=== PATIENT | female | born 1980 | race Caucasian/White ===

== ENCOUNTER 2018-02-22 12:44 | Emergency (ER) | payer OTHER ==
[2018-02-22 14:18] LABS: ADD MAN DIFF? NO
[2018-02-22 14:20] LABS: WHITE BLOOD COUNT 6.9 10^3/ul (4.8-10.8)
[2018-02-22 14:20] LABS: BASOPHILS % 0.3 % (0.0-2.0); EOSINOPHILS # 0.1 10^3/ul (0.0-0.5); HEMATOCRIT 36.1 % (37.0-47.0); HEMOGLOBIN 12.3 g/dl (12.0-16.0); LYMPHOCYTES # 1.7 10^3/ul (0.8-2.9); LYMPHOCYTES % 25.1 % (15.0-51.0); MEAN CORPUSCULAR HEMOGLOBIN 32.5 pg (29.0-33.0); MEAN CORPUSCULAR HGB CONC 34.1 g/dl (32.0-37.0); MEAN CORPUSCULAR VOLUME 95.5 fl (82.0-101.0); MEAN PLATELET VOLUME 10.2 fl (7.4-10.4); MONOCYTE # 0.8 10^3/ul (0.3-0.9); MONOCYTES % 11.3 % (0.0-11.0); NEUTROPHIL # 4.3 10^3/ul (1.6-7.5); PLATELET COUNT 266 10^3/UL (140-415); RED BLOOD COUNT 3.78 10^6/ul (4.20-5.40); RED CELL DISTRIBUTION WIDTH 12.6 % (11.5-14.5)
[2018-02-22 14:45] LABS: ADD UMIC NO; UR ASCORBIC ACID 20 mg/dL (NEGATIVE); UR BACTERIA FEW /HPF (NONE SEEN); UR BILIRUBIN (Dip) NEGATIVE (NEGATIVE); UR BLOOD (Dip) NEGATIVE (NEGATIVE); UR CLARITY SLIGHTLY CLOUDY (CLEAR); UR COLOR YELLOW (YELLOW); UR GLUCOSE (Dip) NEGATIVE (NEGATIVE); UR KETONES (Dip) NEGATIVE (NEGATIVE); UR LEUKOCYTE ESTERASE (Dip) NEGATIVE Leu/ul (NEGATIVE); UR NITRITE (Dip) NEGATIVE (NEGATIVE); UR RBC 2 /HPF (0-5); UR SPECIFIC GRAVITY (Dip) 1.012 (1.003-1.030); UR TOTAL PROTEIN (Dip) NEGATIVE (NEGATIVE); UR UROBILINOGEN (Dip) NEGATIVE (NEGATIVE); UR WBC 2 /HPF (0-5)
== END 2018-02-22 15:49 | disposition home or self-care (01) ==
LOC: FTE 12:44
DX: O26.891 Other specified pregnancy related conditions, first trimester (principal); R10.2 Pelvic and perineal pain; O10.011 Pre-existing essential hypertension complicating pregnancy, first trimester; Z3A.08 8 weeks gestation of pregnancy
CPT/HCPCS: 36415; 76801; 76817; 81001; 81003; 84702; 85025; 86850; 86900; 86901; 99284-25

== ENCOUNTER 2018-06-20 12:59 | Outpatient (CLI) | payer OTHER ==
[2018-06-20 14:43] LABS: ADD MAN DIFF? NO
[2018-06-20 14:47] LABS: BASOPHILS % 0.2 % (0.0-2.0); EOSINOPHILS # 0.1 10^3/ul (0.0-0.5); HEMATOCRIT 32.2 % (37.0-47.0); HEMOGLOBIN 11.1 g/dl (12.0-16.0); LYMPHOCYTES # 1.4 10^3/ul (0.8-2.9); LYMPHOCYTES % 15.5 % (15.0-51.0); MEAN CORPUSCULAR HEMOGLOBIN 34.3 pg (29.0-33.0); MEAN CORPUSCULAR HGB CONC 34.5 g/dl (32.0-37.0); MEAN CORPUSCULAR VOLUME 99.4 fl (82.0-101.0); MEAN PLATELET VOLUME 10.2 fl (7.4-10.4); MONOCYTE # 0.8 10^3/ul (0.3-0.9); MONOCYTES % 8.7 % (0.0-11.0); NEUTROPHIL # 6.6 10^3/ul (1.6-7.5); PLATELET COUNT 262 10^3/UL (140-415); RED BLOOD COUNT 3.24 10^6/ul (4.20-5.40); RED CELL DISTRIBUTION WIDTH 13.5 % (11.5-14.5)
[2018-06-20 15:07] LABS: ALANINE AMINOTRANSFERASE 54 IU/L (13-69); ALBUMIN 3.2 g/dl (3.3-4.9); ALBUMIN/GLOBULIN RATIO 0.96; ALKALINE PHOSPHATASE 115 IU/L (42-121); ANION GAP 10 (8-16); ASPARTATE AMINO TRANSFERASE 43 IU/L (15-46); BILIRUBIN,INDIRECT 0.4 mg/dl (0-1.1); BILIRUBIN,TOTAL 0.4 mg/dl (0.2-1.3); BLOOD UREA NITROGEN 6 mg/dl (7-20); CARBON DIOXIDE 26 mmol/L (21-31); CHLORIDE 104 mmol/L (97-110); CREATININE 0.69 mg/dl (0.44-1.00); GLUCOSE 80 mg/dl (70-220); POTASSIUM 4.6 mmol/L (3.5-5.1); SODIUM 135 mmol/L (135-144); TOTAL PROTEIN 6.5 g/dl (6.1-8.1)
[2018-06-20] MEDS: BETAMET NA PHOS/AC(6 MG/ML) 5ML INJ IM (16:49)
== END 2018-06-20 17:02 | disposition home or self-care (01) ==
LOC: OBT 12:59 → L-D 12:59 → OBT 17:02
DX: O36.8130 Decreased fetal movements, third trimester, not applicable or unspecified (principal); O09.522 Supervision of elderly multigravida, second trimester; Z3A.25 25 weeks gestation of pregnancy
CPT/HCPCS: 76815; 80053; 85025

== ENCOUNTER 2018-06-21 16:06 | Outpatient (CLI) | payer OTHER ==
[2018-06-21] MEDS: BETAMET NA PHOS/AC(6 MG/ML) 5ML INJ IM (16:37)
== END 2018-06-21 18:50 | disposition home or self-care (01) ==
LOC: OBT 16:06 → L-D 16:07 → OBT 18:50
DX: O36.8920 Maternal care for other specified fetal problems, second trimester, not applicable or unspecified (principal); O09.522 Supervision of elderly multigravida, second trimester; Z3A.25 25 weeks gestation of pregnancy
CPT/HCPCS: 76815; 76817

== ENCOUNTER 2018-07-09 17:34 | Inpatient (IN) | payer OTHER ==
[2018-07-09 18:39] LABS: ADD MAN DIFF? NO
[2018-07-09 18:43] LABS: BASOPHILS % 0.1 % (0.0-2.0); EOSINOPHILS # 0.1 10^3/ul (0.0-0.5); EOSINOPHILS % 0.8 % (0.0-7.0); HEMATOCRIT 32.7 % (37.0-47.0); HEMOGLOBIN 11.2 g/dl (12.0-16.0); LYMPHOCYTES # 1.9 10^3/ul (0.8-2.9); LYMPHOCYTES % 19.9 % (15.0-51.0); MEAN CORPUSCULAR HEMOGLOBIN 34.1 pg (29.0-33.0); MEAN CORPUSCULAR HGB CONC 34.3 g/dl (32.0-37.0); MEAN CORPUSCULAR VOLUME 99.7 fl (82.0-101.0); MEAN PLATELET VOLUME 9.7 fl (7.4-10.4); MONOCYTE # 0.8 10^3/ul (0.3-0.9); MONOCYTES % 7.7 % (0.0-11.0); NEUTROPHIL # 6.9 10^3/ul (1.6-7.5); NEUTROPHILS % 70.9 % (39.0-77.0); PLATELET COUNT 238 10^3/UL (140-415); RED BLOOD COUNT 3.28 10^6/ul (4.20-5.40); RED CELL DISTRIBUTION WIDTH 13.4 % (11.5-14.5)
[2018-07-09 18:43] LABS: WHITE BLOOD COUNT 9.7 10^3/ul (4.8-10.8)
[2018-07-09 18:50] LABS: ADD UMIC NO; UR ASCORBIC ACID NEGATIVE (NEGATIVE); UR BILIRUBIN (Dip) NEGATIVE (NEGATIVE); UR BLOOD (Dip) NEGATIVE (NEGATIVE); UR CLARITY CLEAR (CLEAR); UR COLOR YELLOW (YELLOW); UR GLUCOSE (Dip) NEGATIVE (NEGATIVE); UR KETONES (Dip) NEGATIVE (NEGATIVE); UR LEUKOCYTE ESTERASE (Dip) NEGATIVE Leu/ul (NEGATIVE); UR NITRITE (Dip) NEGATIVE (NEGATIVE); UR SPECIFIC GRAVITY (Dip) 1.009 (1.003-1.030); UR TOTAL PROTEIN (Dip) NEGATIVE (NEGATIVE); UR UROBILINOGEN (Dip) NEGATIVE (NEGATIVE)
[2018-07-09 19:02] LABS: ALANINE AMINOTRANSFERASE 57 IU/L (13-69); ALBUMIN 3.8 g/dl (3.3-4.9); ALBUMIN/GLOBULIN RATIO 1.46; ALKALINE PHOSPHATASE 142 IU/L (42-121); ANION GAP 9 (5-13); ASPARTATE AMINO TRANSFERASE 37 IU/L (15-46); BILIRUBIN,INDIRECT 0.2 mg/dl (0-1.1); BILIRUBIN,TOTAL 0.2 mg/dl (0.2-1.3); BLOOD UREA NITROGEN 7 mg/dl (7-20); CALCIUM 10.1 mg/dl (8.4-10.2); CARBON DIOXIDE 24 mmol/L (21-31); CHLORIDE 105 mmol/L (97-110); CREATININE 0.65 mg/dl (0.44-1.00); Estimated GFR > 60 mL/min (>60); GLUCOSE 99 mg/dl (70-220); SODIUM 138 mmol/L (135-144); TOTAL PROTEIN 6.4 g/dl (6.1-8.1); URIC ACID 3.6 mg/dl (3.1-7.9)
[2018-07-09 20:20] LABS: INR 0.91; PROTIME 12.3 Sec (11.9-14.9)
[2018-07-09] MEDS: LACTATED RINGER'S 1,000 ML IV (20:40)
[2018-07-09] MEDS: AMPICILLIN 2 GM/NS (PMX) 100 ML IV (20:43)
[2018-07-09] MEDS: MAGNESIUM SULFATE 4 GM/100 ML 100 ML IV (20:48)
[2018-07-09] MEDS: PROGESTERONE 100 MG CAP PO (21:45)
[2018-07-09] MEDS: LABETALOL 100 MG TAB PO (21:45)
[2018-07-09] MEDS: MAGNESIUM SULFATE 20 GM/500 ML 500 ML IV (21:50)
[2018-07-09] MEDS: SERTRALINE 50 MG TAB PO (22:24)
[2018-07-10 01:22] LABS: MAGNESIUM 4.7 mg/dl (1.7-2.5)
[2018-07-10] MEDS: AMPICILLIN 1 GM/NS (PMX) 50 ML IV ×6 (02:07→21:09)
[2018-07-10] MEDS: MAGNESIUM SULFATE 20 GM/500 ML 500 ML IV ×2 (06:22→17:32)
[2018-07-10 06:55] LABS: MAGNESIUM 5.4 mg/dl (1.7-2.5)
[2018-07-10] MEDS: PRENATAL VITAMIN PO (08:12)
[2018-07-10] MEDS: LABETALOL 100 MG TAB PO ×2 (08:13→21:09)
[2018-07-10] MEDS: ACETAMINOPHEN 325 MG TAB PO ×2 (08:13→14:22)
[2018-07-10] MEDS: LACTATED RINGER'S 1,000 ML IV ×2 (10:20→22:27)
[2018-07-10 13:08] LABS: MAGNESIUM 6.3 mg/dl (1.7-2.5)
[2018-07-10] MEDS: SERTRALINE 50 MG TAB PO (22:07)
[2018-07-10] MEDS: PROGESTERONE 100 MG CAP PO (22:08)
[2018-07-10] MEDS: ZOLPIDEM 5 MG TAB PO (22:08)
[2018-07-11] MEDS: LACTATED RINGER'S 1,000 ML IV ×2 (00:59→23:26)
[2018-07-11] MEDS: AMPICILLIN 1 GM/NS (PMX) 50 ML IV ×3 (00:59→08:21)
[2018-07-11 08:51] LABS: HEMOGLOBIN A1C 5.1 % (0-5.9)
[2018-07-11] MEDS: PRENATAL VITAMIN PO (08:57)
[2018-07-11] MEDS: DOCUSATE SODIUM 100 MG CAP PO ×3 (08:57→21:53)
[2018-07-11] MEDS: LABETALOL 100 MG TAB PO ×2 (08:57→21:53)
[2018-07-11] MEDS: AZITHROMYCIN 250 MG TAB PO (08:58)
[2018-07-11] MEDS: INDOMETHACIN 50 MG PO (13:46)
[2018-07-11] MEDS: SOD FERRIC GLUC COMPLX 125 MG in SOD CHLORIDE 0.9% 100 ML IVPB (17:18)
[2018-07-11] MEDS: INDOMETHACIN 25 MG PO ×2 (18:03→23:26)
[2018-07-11 19:05] LABS: COLLECTION PERIOD 24 hrs
[2018-07-11 19:17] LABS: CREATININE,URINE RANDOM 23.95 mg/dl (20-320); VOLUME 4800 mls
[2018-07-11 19:47] LABS: COLLECTION PERIOD 24 hrs; CREATININE CLEARANCE 159.7 mls/min (84.0-162.0); VOLUME 4800 ml/24hrs
[2018-07-11] MEDS: SERTRALINE 50 MG TAB PO (21:52)
[2018-07-11] MEDS: PROGESTERONE 100 MG CAP PO (21:54)
[2018-07-11] MEDS: ZOLPIDEM 5 MG TAB PO (22:24)
[2018-07-11] MEDS: CALCIUM CARBONATE 750 MG CHEW TAB PO (23:26)
[2018-07-12] MEDS: INDOMETHACIN 25 MG PO ×4 (05:27→23:46)
[2018-07-12] MEDS ORDERED: SOD FERRIC GLUC COMPLX 125 MG in SOD CHLORIDE 0.9% 100 ML IVPB (09:00)
[2018-07-12] MEDS ORDERED: PRENATAL VITAMIN PO (09:00)
[2018-07-12] MEDS: FOLIC ACID 1 MG TAB PO (09:43)
[2018-07-12] MEDS: PRENATAL VITAMIN PO (09:43)
[2018-07-12] MEDS: LABETALOL 100 MG TAB PO ×2 (09:43→21:59)
[2018-07-12] MEDS: CHOLECALCIFEROL 2,000 UNIT CAP PO (11:53)
[2018-07-12] MEDS: CALCIUM CARBONATE 750 MG CHEW TAB PO ×2 (12:30→19:50)
[2018-07-12] MEDS: LACTATED RINGER'S 1,000 ML IV (12:31)
[2018-07-12] MEDS: SOD FERRIC GLUC COMPLX 125 MG in SOD CHLORIDE 0.9% 100 ML IVPB (16:36)
[2018-07-12] MEDS: DOCUSATE SODIUM 100 MG CAP PO (21:59)
[2018-07-12] MEDS: SERTRALINE 50 MG TAB PO (21:59)
[2018-07-12] MEDS: PROGESTERONE 100 MG CAP PO (22:00)
[2018-07-12] MEDS: ZOLPIDEM 5 MG TAB PO (23:46)
[2018-07-13] MEDS: LACTATED RINGER'S 1,000 ML IV ×3 (02:10→19:17)
[2018-07-13] MEDS: INDOMETHACIN 25 MG PO ×3 (06:08→18:01)
[2018-07-13] MEDS: FOLIC ACID 1 MG TAB PO (09:22)
[2018-07-13] MEDS: CHOLECALCIFEROL 2,000 UNIT CAP PO (09:22)
[2018-07-13] MEDS: PRENATAL VITAMIN PO (09:22)
[2018-07-13] MEDS: DOCUSATE SODIUM 100 MG CAP PO ×2 (09:22→21:22)
[2018-07-13] MEDS: LABETALOL 100 MG TAB PO ×2 (09:23→21:23)
[2018-07-13] MEDS: CALCIUM CARBONATE 750 MG CHEW TAB PO (11:11)
[2018-07-13] MEDS: SOD FERRIC GLUC COMPLX 125 MG in SOD CHLORIDE 0.9% 100 ML IVPB (18:01)
[2018-07-13] MEDS: SERTRALINE 50 MG TAB PO (21:23)
[2018-07-13] MEDS: PROGESTERONE 100 MG CAP PO (21:23)
[2018-07-14] MEDS: ZOLPIDEM 5 MG TAB PO ×2 (00:10→22:33)
[2018-07-14] MEDS: BETAMET NA PHOS/AC(6 MG/ML) 2 ML INJ SYG IM ×2 (01:00→11:13)
[2018-07-14] MEDS: PRENATAL VITAMIN PO (08:36)
[2018-07-14] MEDS: FOLIC ACID 1 MG TAB PO (08:36)
[2018-07-14] MEDS: LABETALOL 100 MG TAB PO ×2 (08:36→22:32)
[2018-07-14] MEDS: DOCUSATE SODIUM 100 MG CAP PO ×2 (08:36→22:31)
[2018-07-14] MEDS: CHOLECALCIFEROL 2,000 UNIT CAP PO (08:36)
[2018-07-14] MEDS: LACTULOSE 30ML CUP PO (12:40)
[2018-07-14] MEDS: POLYETHYLENE GLYCOL 17 GM PACKET PO (12:41)
[2018-07-14] MEDS: PROGESTERONE 100 MG CAP PO (22:32)
[2018-07-14] MEDS: SERTRALINE 50 MG TAB PO (22:33)
[2018-07-15] MEDS: POLYETHYLENE GLYCOL 17 GM PACKET PO (09:00)
[2018-07-15] MEDS: DOCUSATE SODIUM 100 MG CAP PO ×2 (09:51→21:44)
[2018-07-15] MEDS: CHOLECALCIFEROL 2,000 UNIT CAP PO (09:51)
[2018-07-15] MEDS: FOLIC ACID 1 MG TAB PO (09:51)
[2018-07-15] MEDS: PRENATAL VITAMIN PO (09:51)
[2018-07-15] MEDS: LABETALOL 100 MG TAB PO ×2 (09:52→21:45)
[2018-07-15] MEDS: BETAMET NA PHOS/AC(6 MG/ML) 2 ML INJ SYG IM (14:03)
[2018-07-15] MEDS: SERTRALINE 50 MG TAB PO (21:44)
[2018-07-15] MEDS: PROGESTERONE 100 MG CAP PO (21:45)
[2018-07-16] MEDS: FOLIC ACID 1 MG TAB PO (10:32)
[2018-07-16] MEDS: CHOLECALCIFEROL 2,000 UNIT CAP PO (10:32)
[2018-07-16] MEDS: PRENATAL VITAMIN PO (10:32)
[2018-07-16] MEDS: DOCUSATE SODIUM 100 MG CAP PO ×2 (10:32→21:29)
[2018-07-16] MEDS: LABETALOL 100 MG TAB PO ×2 (10:42→21:30)
[2018-07-16] MEDS: SERTRALINE 50 MG TAB PO (21:30)
[2018-07-16] MEDS: PROGESTERONE 100 MG CAP PO (21:30)
[2018-07-17] MEDS: POLYETHYLENE GLYCOL 17 GM PACKET PO ×2 (08:42→11:12)
[2018-07-17] MEDS: CHOLECALCIFEROL 2,000 UNIT CAP PO (08:42)
[2018-07-17] MEDS: FOLIC ACID 1 MG TAB PO (08:42)
[2018-07-17] MEDS: PRENATAL VITAMIN PO (08:42)
[2018-07-17] MEDS: DOCUSATE SODIUM 100 MG CAP PO ×2 (08:42→21:12)
[2018-07-17] MEDS: LABETALOL 100 MG TAB PO ×2 (08:47→21:13)
[2018-07-17] MEDS: CALCIUM CARBONATE 750 MG CHEW TAB PO (11:12)
[2018-07-17] MEDS: SERTRALINE 50 MG TAB PO (21:12)
[2018-07-17] MEDS: PROGESTERONE 100 MG CAP PO (21:12)
[2018-07-18] MEDS: DOCUSATE SODIUM 100 MG CAP PO ×2 (09:33→22:22)
[2018-07-18] MEDS: PRENATAL VITAMIN PO (09:34)
[2018-07-18] MEDS: FOLIC ACID 1 MG TAB PO (09:34)
[2018-07-18] MEDS: CHOLECALCIFEROL 2,000 UNIT CAP PO (09:35)
[2018-07-18] MEDS: LABETALOL 100 MG TAB PO ×2 (09:35→22:21)
[2018-07-18] MEDS: POLYETHYLENE GLYCOL 17 GM PACKET PO ×2 (09:35→09:36)
[2018-07-18] MEDS: LACTATED RINGER'S 1,000 ML IV ×3 (16:50→23:00)
[2018-07-18] MEDS: CALCIUM CARBONATE 750 MG CHEW TAB PO ×2 (18:40→22:21)
[2018-07-18] MEDS: SERTRALINE 50 MG TAB PO (22:22)
[2018-07-18] MEDS: PROGESTERONE 100 MG CAP PO (22:22)
[2018-07-19] MEDS: LACTATED RINGER'S 1,000 ML IV ×3 (01:47→21:00)
[2018-07-19] MEDS: DOCUSATE SODIUM 100 MG CAP PO ×2 (09:07→21:07)
[2018-07-19] MEDS: CHOLECALCIFEROL 2,000 UNIT CAP PO (09:07)
[2018-07-19] MEDS: LABETALOL 100 MG TAB PO ×2 (09:07→21:07)
[2018-07-19] MEDS: FOLIC ACID 1 MG TAB PO (09:07)
[2018-07-19] MEDS: PRENATAL VITAMIN PO (09:07)
[2018-07-19] MEDS: CALCIUM CARBONATE 750 MG CHEW TAB PO (10:51)
[2018-07-19] MEDS: PROGESTERONE 100 MG CAP PO (21:08)
[2018-07-19] MEDS: SERTRALINE 50 MG TAB PO (21:08)
[2018-07-20] MEDS: LACTATED RINGER'S 1,000 ML IV ×2 (03:58→19:55)
[2018-07-20] MEDS: FOLIC ACID 1 MG TAB PO (09:39)
[2018-07-20] MEDS: LABETALOL 100 MG TAB PO ×2 (09:39→20:59)
[2018-07-20] MEDS: DOCUSATE SODIUM 100 MG CAP PO ×2 (09:39→20:59)
[2018-07-20] MEDS: CHOLECALCIFEROL 2,000 UNIT CAP PO (09:40)
[2018-07-20] MEDS: PRENATAL VITAMIN PO (09:40)
[2018-07-20] MEDS: CALCIUM CARBONATE 500 MG CHEW TAB PO (10:21)
[2018-07-20] MEDS: POLYETHYLENE GLYCOL 17 GM PACKET PO (10:21)
[2018-07-20] MEDS: SERTRALINE 50 MG TAB PO (21:00)
[2018-07-20] MEDS: PROGESTERONE 100 MG CAP PO (22:17)
[2018-07-21] MEDS: LACTATED RINGER'S 1,000 ML IV ×4 (04:23→21:00)
[2018-07-21] MEDS: LABETALOL 100 MG TAB PO ×2 (09:04→22:07)
[2018-07-21] MEDS: CHOLECALCIFEROL 2,000 UNIT CAP PO (09:04)
[2018-07-21] MEDS: PRENATAL VITAMIN PO (09:04)
[2018-07-21] MEDS: FOLIC ACID 1 MG TAB PO (09:05)
[2018-07-21] MEDS: CALCIUM CARBONATE 500 MG CHEW TAB PO (09:05)
[2018-07-21] MEDS: DOCUSATE SODIUM 100 MG CAP PO ×2 (09:05→22:06)
[2018-07-21] MEDS: POLYETHYLENE GLYCOL 17 GM PACKET PO (12:37)
[2018-07-21] MEDS: SERTRALINE 50 MG TAB PO (22:07)
[2018-07-21] MEDS: PROGESTERONE 100 MG CAP PO (22:07)
[2018-07-22] MEDS: PRENATAL VITAMIN PO (12:16)
[2018-07-22] MEDS: LABETALOL 100 MG TAB PO ×2 (12:17→21:48)
[2018-07-22] MEDS: CALCIUM CARBONATE 500 MG CHEW TAB PO (14:27)
[2018-07-22] MEDS: CHOLECALCIFEROL 2,000 UNIT CAP PO (19:34)
[2018-07-22] MEDS: FOLIC ACID 1 MG TAB PO (19:34)
[2018-07-22] MEDS: POLYETHYLENE GLYCOL 17 GM PACKET PO (19:36)
[2018-07-22] MEDS: DOCUSATE SODIUM 100 MG CAP PO ×2 (19:36→21:48)
[2018-07-22] MEDS: FAMOTIDINE 20 MG TAB PO (21:46)
[2018-07-22] MEDS: SERTRALINE 50 MG TAB PO (21:46)
[2018-07-22] MEDS: PROGESTERONE 100 MG CAP PO (21:50)
[2018-07-23] MEDS: DOCUSATE SODIUM 100 MG CAP PO ×2 (09:41→21:11)
[2018-07-23] MEDS: FOLIC ACID 1 MG TAB PO (09:41)
[2018-07-23] MEDS: CHOLECALCIFEROL 2,000 UNIT CAP PO (09:41)
[2018-07-23] MEDS: PRENATAL VITAMIN PO (09:41)
[2018-07-23] MEDS: FAMOTIDINE 20 MG TAB PO ×2 (09:41→21:48)
[2018-07-23] MEDS: LABETALOL 100 MG TAB PO ×2 (09:42→21:12)
[2018-07-23] MEDS: POLYETHYLENE GLYCOL 17 GM PACKET PO (11:39)
[2018-07-23] MEDS: SERTRALINE 50 MG TAB PO (21:11)
[2018-07-23] MEDS: PROGESTERONE 100 MG CAP PO (21:48)
[2018-07-24] MEDS: POLYETHYLENE GLYCOL 17 GM PACKET PO (09:00)
[2018-07-24] MEDS: PRENATAL VITAMIN PO (09:35)
[2018-07-24] MEDS: LABETALOL 100 MG TAB PO ×2 (09:36→21:29)
[2018-07-24] MEDS: DOCUSATE SODIUM 100 MG CAP PO ×2 (09:36→21:29)
[2018-07-24] MEDS: FAMOTIDINE 20 MG TAB PO ×2 (10:04→22:25)
[2018-07-24] MEDS: CHOLECALCIFEROL 2,000 UNIT CAP PO (10:05)
[2018-07-24] MEDS: CALCIUM CARBONATE 500 MG CHEW TAB PO (10:09)
[2018-07-24] MEDS: FOLIC ACID 1 MG TAB PO (11:41)
[2018-07-24] MEDS: SERTRALINE 50 MG TAB PO (21:27)
[2018-07-24] MEDS: PROGESTERONE 100 MG CAP PO (21:29)
[2018-07-25] MEDS: LABETALOL 100 MG TAB PO ×2 (09:00→21:00)
[2018-07-25] MEDS: DOCUSATE SODIUM 100 MG CAP PO ×2 (09:26→22:19)
[2018-07-25] MEDS: PRENATAL VITAMIN PO (09:27)
[2018-07-25] MEDS: POLYETHYLENE GLYCOL 17 GM PACKET PO (09:27)
[2018-07-25] MEDS: FAMOTIDINE 20 MG TAB PO ×2 (09:37→22:41)
[2018-07-25] MEDS: CHOLECALCIFEROL 2,000 UNIT CAP PO (09:38)
[2018-07-25] MEDS: FOLIC ACID 1 MG TAB PO (09:38)
[2018-07-25] MEDS: PROGESTERONE 100 MG CAP PO (22:19)
[2018-07-25] MEDS: SERTRALINE 50 MG TAB PO (22:41)
[2018-07-26] MEDS: FAMOTIDINE 20 MG TAB PO ×2 (08:39→21:56)
[2018-07-26] MEDS: DOCUSATE SODIUM 100 MG CAP PO ×2 (08:39→21:55)
[2018-07-26] MEDS: PRENATAL VITAMIN PO (08:39)
[2018-07-26] MEDS: LABETALOL 100 MG TAB PO ×2 (08:42→21:54)
[2018-07-26] MEDS: CALCIUM CARBONATE 500 MG CHEW TAB PO (08:46)
[2018-07-26] MEDS: FOLIC ACID 1 MG TAB PO (08:56)
[2018-07-26] MEDS: POLYETHYLENE GLYCOL 17 GM PACKET PO (21:00)
[2018-07-26] MEDS: SERTRALINE 50 MG TAB PO (22:00)
[2018-07-26] MEDS: PROGESTERONE 100 MG CAP PO (22:03)
[2018-07-27 06:52] LABS: GTT FASTING URINE NEGATIVE (NEGATIVE)
[2018-07-27 07:08] LABS: GTT FASTING GLUCOSE 89 mg/dl (70-110)
[2018-07-27 08:52] LABS: GLUCOSE 1 HOUR 160 mg/dl
[2018-07-27] MEDS: DOCUSATE SODIUM 100 MG CAP PO ×2 (10:13→21:19)
[2018-07-27] MEDS: FOLIC ACID 1 MG TAB PO (10:14)
[2018-07-27] MEDS: LABETALOL 100 MG TAB PO ×2 (10:16→21:19)
[2018-07-27] MEDS: PRENATAL VITAMIN PO (10:17)
[2018-07-27] MEDS: FAMOTIDINE 20 MG TAB PO ×2 (10:17→21:34)
[2018-07-27] MEDS: SERTRALINE 50 MG TAB PO (21:19)
[2018-07-27] MEDS: POLYETHYLENE GLYCOL 17 GM PACKET PO (21:19)
[2018-07-27] MEDS: PROGESTERONE 100 MG CAP PO (21:34)
[2018-07-28 06:41] LABS: GTT FASTING URINE NEGATIVE (NEGATIVE)
[2018-07-28 07:02] LABS: GTT FASTING GLUCOSE 88 mg/dl (70-110)
[2018-07-28] MEDS: PRENATAL VITAMIN PO (08:34)
[2018-07-28] MEDS: LABETALOL 100 MG TAB PO ×2 (08:34→22:21)
[2018-07-28] MEDS: DOCUSATE SODIUM 100 MG CAP PO ×2 (08:34→22:25)
[2018-07-28] MEDS: FOLIC ACID 1 MG TAB PO (08:34)
[2018-07-28] MEDS: CHOLECALCIFEROL 2,000 UNIT CAP PO (08:35)
[2018-07-28] MEDS: FAMOTIDINE 20 MG TAB PO ×2 (08:54→22:23)
[2018-07-28] MEDS: POLYSACCHARIDE IRON COMPLEX CAP PO (21:00)
[2018-07-28] MEDS: PROGESTERONE 100 MG CAP PO ×2 (22:23→22:30)
[2018-07-28] MEDS: POLYETHYLENE GLYCOL 17 GM PACKET PO (22:26)
[2018-07-28] MEDS: SERTRALINE 50 MG TAB PO (22:31)
[2018-07-29] MEDS: PRENATAL VITAMIN PO (10:11)
[2018-07-29] MEDS: DOCUSATE SODIUM 100 MG CAP PO ×2 (10:11→21:26)
[2018-07-29] MEDS: LABETALOL 100 MG TAB PO ×2 (10:12→21:26)
[2018-07-29] MEDS: CALCIUM CARBONATE 500 MG CHEW TAB PO (10:12)
[2018-07-29] MEDS: FOLIC ACID 1 MG TAB PO (10:12)
[2018-07-29] MEDS: CHOLECALCIFEROL 2,000 UNIT CAP PO (14:36)
[2018-07-29] MEDS: FAMOTIDINE 20 MG TAB PO ×2 (14:37→21:26)
[2018-07-29] MEDS: POLYETHYLENE GLYCOL 17 GM PACKET PO (23:30)
[2018-07-29] MEDS: SERTRALINE 50 MG TAB PO (23:42)
[2018-07-30] MEDS: LABETALOL 100 MG TAB PO ×2 (09:20→22:15)
[2018-07-30] MEDS: PRENATAL VITAMIN PO (09:21)
[2018-07-30] MEDS: FAMOTIDINE 20 MG TAB PO ×2 (09:21→22:16)
[2018-07-30] MEDS: FOLIC ACID 1 MG TAB PO (09:21)
[2018-07-30] MEDS: DOCUSATE SODIUM 100 MG CAP PO ×2 (09:59→22:15)
[2018-07-30] MEDS: CHOLECALCIFEROL 2,000 UNIT CAP PO (09:59)
[2018-07-30] MEDS: PROGESTERONE 100 MG CAP PO (22:17)
[2018-07-30] MEDS: POLYETHYLENE GLYCOL 17 GM PACKET PO (22:17)
[2018-07-30] MEDS: SERTRALINE 50 MG TAB PO (23:00)
[2018-07-31] MEDS: PRENATAL VITAMIN PO (08:30)
[2018-07-31] MEDS: FAMOTIDINE 20 MG TAB PO ×2 (08:30→22:47)
[2018-07-31] MEDS: LABETALOL 100 MG TAB PO ×2 (08:30→22:46)
[2018-07-31] MEDS: CHOLECALCIFEROL 2,000 UNIT CAP PO (08:30)
[2018-07-31] MEDS: FOLIC ACID 1 MG TAB PO (08:30)
[2018-07-31] MEDS: POLYETHYLENE GLYCOL 17 GM PACKET PO (22:44)
[2018-07-31] MEDS: DOCUSATE SODIUM 100 MG CAP PO (22:46)
[2018-07-31] MEDS: SERTRALINE 50 MG TAB PO (22:47)
[2018-07-31] MEDS: PROGESTERONE 100 MG CAP PO (22:52)
[2018-08-01] MEDS: FOLIC ACID 1 MG TAB PO (10:29)
[2018-08-01] MEDS: DOCUSATE SODIUM 100 MG CAP PO ×2 (10:29→21:15)
[2018-08-01] MEDS: LABETALOL 100 MG TAB PO ×2 (10:31→21:15)
[2018-08-01] MEDS: PRENATAL VITAMIN PO (10:40)
[2018-08-01] MEDS: FAMOTIDINE 20 MG TAB PO (21:14)
[2018-08-01] MEDS: SERTRALINE 50 MG TAB PO (21:16)
[2018-08-01] MEDS: PROGESTERONE 100 MG CAP PO (23:04)
[2018-08-01] MEDS: POLYETHYLENE GLYCOL 17 GM PACKET PO (23:04)
[2018-08-02] MEDS: FOLIC ACID 1 MG TAB PO ×2 (10:21→10:23)
[2018-08-02] MEDS: DOCUSATE SODIUM 100 MG CAP PO ×3 (10:21→21:25)
[2018-08-02] MEDS: CHOLECALCIFEROL 2,000 UNIT CAP PO ×2 (10:21→10:22)
[2018-08-02] MEDS: CALCIUM CARBONATE 500 MG CHEW TAB PO ×2 (10:21→10:22)
[2018-08-02] MEDS: LABETALOL 100 MG TAB PO ×3 (10:21→21:38)
[2018-08-02] MEDS: FAMOTIDINE 20 MG TAB PO ×3 (10:21→21:24)
[2018-08-02] MEDS: PRENATAL VITAMIN PO ×2 (10:21→10:22)
[2018-08-02] MEDS: POLYETHYLENE GLYCOL 17 GM PACKET PO (21:24)
[2018-08-02] MEDS: SERTRALINE 50 MG TAB PO (21:24)
[2018-08-02] MEDS: PROGESTERONE 100 MG CAP PO (21:33)
[2018-08-03] MEDS: DOCUSATE SODIUM 100 MG CAP PO ×2 (09:15→21:14)
[2018-08-03] MEDS: PRENATAL VITAMIN PO (09:15)
[2018-08-03] MEDS: FOLIC ACID 1 MG TAB PO (09:16)
[2018-08-03] MEDS: LABETALOL 100 MG TAB PO ×2 (09:16→21:13)
[2018-08-03] MEDS: CHOLECALCIFEROL 2,000 UNIT CAP PO (09:16)
[2018-08-03] MEDS: FAMOTIDINE 20 MG TAB PO ×2 (10:49→23:25)
[2018-08-03] MEDS: FERROUS FUMARATE (SR) TAB PO (10:49)
[2018-08-03] MEDS: PROGESTERONE 100 MG CAP PO (22:55)
[2018-08-03] MEDS: POLYETHYLENE GLYCOL 17 GM PACKET PO (23:25)
[2018-08-03] MEDS: SERTRALINE 50 MG TAB PO (23:27)
[2018-08-04] MEDS: DOCUSATE SODIUM 100 MG CAP PO ×2 (09:29→21:00)
[2018-08-04] MEDS: FERROUS FUMARATE (SR) TAB PO (09:29)
[2018-08-04] MEDS: LABETALOL 100 MG TAB PO ×2 (09:29→20:30)
[2018-08-04] MEDS: FAMOTIDINE 20 MG TAB PO ×2 (09:29→20:29)
[2018-08-04] MEDS: PRENATAL VITAMIN PO (09:30)
[2018-08-04] MEDS: FOLIC ACID 1 MG TAB PO (09:30)
[2018-08-04] MEDS: CHOLECALCIFEROL 2,000 UNIT CAP PO (09:34)
[2018-08-04] MEDS: POLYETHYLENE GLYCOL 17 GM PACKET PO (20:28)
[2018-08-04] MEDS: SERTRALINE 50 MG TAB PO (20:29)
[2018-08-04] MEDS: PROGESTERONE 100 MG CAP PO (20:30)
[2018-08-05] MEDS: FAMOTIDINE 20 MG TAB PO ×2 (10:12→21:34)
[2018-08-05] MEDS: FERROUS FUMARATE (SR) TAB PO (10:13)
[2018-08-05] MEDS: PRENATAL VITAMIN PO (10:17)
[2018-08-05] MEDS: FOLIC ACID 1 MG TAB PO (10:17)
[2018-08-05] MEDS: LABETALOL 100 MG TAB PO ×2 (10:17→21:34)
[2018-08-05] MEDS: DOCUSATE SODIUM 100 MG CAP PO ×2 (10:21→21:34)
[2018-08-05] MEDS ORDERED: TERBUTALINE 1 MG/ML INJ SC (16:00)
[2018-08-05] MEDS: PROGESTERONE 100 MG CAP PO (22:12)
[2018-08-05] MEDS: SERTRALINE 50 MG TAB PO (22:12)
[2018-08-05] MEDS: POLYETHYLENE GLYCOL 17 GM PACKET PO (22:12)
[2018-08-06] MEDS: LABETALOL 100 MG TAB PO ×2 (09:01→21:32)
[2018-08-06] MEDS: DOCUSATE SODIUM 100 MG CAP PO ×2 (09:02→21:31)
[2018-08-06] MEDS: FOLIC ACID 1 MG TAB PO (09:07)
[2018-08-06] MEDS: FAMOTIDINE 20 MG TAB PO ×2 (09:07→21:31)
[2018-08-06] MEDS: CHOLECALCIFEROL 2,000 UNIT CAP PO (11:12)
[2018-08-06] MEDS: FERROUS FUMARATE (SR) TAB PO (11:12)
[2018-08-06] MEDS ORDERED: METHYLERGONOVINE 0.2 MG INJ (12:57)
[2018-08-06] MEDS: SERTRALINE 50 MG TAB PO (21:32)
[2018-08-06] MEDS: PROGESTERONE 100 MG CAP PO (22:04)
[2018-08-06] MEDS: POLYETHYLENE GLYCOL 17 GM PACKET PO (22:06)
[2018-08-07] MEDS: DOCUSATE SODIUM 100 MG CAP PO (09:17)
[2018-08-07] MEDS: FERROUS FUMARATE (SR) TAB PO (09:18)
[2018-08-07] MEDS: LABETALOL 100 MG TAB PO (09:19)
[2018-08-07] MEDS: PRENATAL VITAMIN PO (09:20)
[2018-08-07] MEDS: CHOLECALCIFEROL 2,000 UNIT CAP PO (11:04)
[2018-08-07] MEDS: FAMOTIDINE 20 MG TAB PO (11:04)
== END 2018-08-07 14:29 | disposition home or self-care (01) | DRG 832 ==
LOC: OBT 17:34 → PP1 07-10 06:52 → L-D 07-22 08:18 → OBT 20:27 → L-D 19:45
PROVIDERS: Obstetrics & Gynecology
DX: O47.02 False labor before 37 completed weeks of gestation, second trimester (principal); O10.012 Pre-existing essential hypertension complicating pregnancy, second trimester; O26.872 Cervical shortening, second trimester; O99.342 Other mental disorders complicating pregnancy, second trimester; O46.8X2 Other antepartum hemorrhage, second trimester; Z3A.27 27 weeks gestation of pregnancy
CPT/HCPCS: 76815; 76817; 76818; 76820; 80053; 81003; 82575; 82731; 82950; 82951; 83036; 83735; 84156; 84560; 85025; 85384; 85610; 85730; 87086; 97110; 97161

== ENCOUNTER 2018-08-09 14:25 | Outpatient (CLI) | payer OTHER | END 2018-08-09 16:30 | disposition home or self-care (01) | LOC: OBT 14:25 → L-D 14:25 → OBT 16:30 | DX: O36.8330 Maternal care for abnormalities of the fetal heart rate or rhythm, third trimester, not applicable or unspecified (principal); O16.3 Unspecified maternal hypertension, third trimester; O99.343 Other mental disorders complicating pregnancy, third trimester; F32.9 Major depressive disorder, single episode, unspecified; O26.873 Cervical shortening, third trimester; O09.523 Supervision of elderly multigravida, third trimester; Z3A.32 32 weeks gestation of pregnancy | CPT/HCPCS: 76818 ==

== ENCOUNTER 2018-08-15 10:19 | Outpatient (CLI) | payer OTHER | END 2018-08-15 12:12 | disposition home or self-care (01) | LOC: OBT 10:19 → L-D 10:19 → OBT 12:12 | DX: O60.03 Preterm labor without delivery, third trimester (principal); Z3A.33 33 weeks gestation of pregnancy | CPT/HCPCS: 76815; 76817; 76818; 82731 ==

== ENCOUNTER 2018-08-25 16:35 | Outpatient (CLI) | payer OTHER | END 2018-08-25 18:35 | disposition home or self-care (01) | LOC: OBT 16:35 → L-D 16:36 → OBT 18:35 | DX: O16.3 Unspecified maternal hypertension, third trimester (principal); O26.873 Cervical shortening, third trimester; O36.8330 Maternal care for abnormalities of the fetal heart rate or rhythm, third trimester, not applicable or unspecified; O09.523 Supervision of elderly multigravida, third trimester; Z3A.34 34 weeks gestation of pregnancy | CPT/HCPCS: 76818 ==

== ENCOUNTER 2018-08-30 16:25 | Outpatient (CLI) | payer OTHER | END 2018-08-30 18:07 | disposition home or self-care (01) | LOC: OBT 16:25 → L-D 16:26 → OBT 18:07 | DX: O26.873 Cervical shortening, third trimester (principal); O13.3 Gestational [pregnancy-induced] hypertension without significant proteinuria, third trimester; O09.523 Supervision of elderly multigravida, third trimester; Z3A.35 35 weeks gestation of pregnancy | CPT/HCPCS: 76818 ==

== ENCOUNTER 2018-09-15 17:36 | Inpatient (IN) | payer OTHER ==
[2018-09-15] MEDS ORDERED: SERTRALINE 50 MG TAB PO (21:00)
[2018-09-15 21:06] LABS: ADD MAN DIFF? NO
[2018-09-15 21:09] LABS: BASOPHILS % 0.2 % (0.0-2.0); EOSINOPHILS % 0.4 % (0.0-7.0); HEMATOCRIT 35.5 % (37.0-47.0); HEMOGLOBIN 11.9 g/dl (12.0-16.0); LYMPHOCYTES # 1.5 10^3/ul (0.8-2.9); MEAN CORPUSCULAR HEMOGLOBIN 33.7 pg (29.0-33.0); MEAN CORPUSCULAR HGB CONC 33.5 g/dl (32.0-37.0); MEAN CORPUSCULAR VOLUME 100.6 fl (82.0-101.0); MEAN PLATELET VOLUME 10.5 fl (7.4-10.4); MONOCYTE # 0.8 10^3/ul (0.3-0.9); MONOCYTES % 7.9 % (0.0-11.0); NEUTROPHIL # 7.3 10^3/ul (1.6-7.5); NEUTROPHILS % 75.5 % (39.0-77.0); PLATELET COUNT 277 10^3/UL (140-415); RED BLOOD COUNT 3.53 10^6/ul (4.20-5.40); RED CELL DISTRIBUTION WIDTH 13.8 % (11.5-14.5)
[2018-09-15 21:09] LABS: WHITE BLOOD COUNT 9.7 10^3/ul (4.8-10.8)
[2018-09-15 21:26] LABS: URIC ACID 5.2 mg/dl (3.1-7.9)
[2018-09-15 21:28] LABS: ALANINE AMINOTRANSFERASE 31 IU/L (13-69); ALBUMIN 3.5 g/dl (3.3-4.9); ALBUMIN/GLOBULIN RATIO 1.16; ALKALINE PHOSPHATASE 231 IU/L (42-121); ANION GAP 10 (5-13); ASPARTATE AMINO TRANSFERASE 29 IU/L (15-46); BILIRUBIN,INDIRECT 0.3 mg/dl (0-1.1); BILIRUBIN,TOTAL 0.3 mg/dl (0.2-1.3); BLOOD UREA NITROGEN 8 mg/dl (7-20); CALCIUM 9.8 mg/dl (8.4-10.2); CARBON DIOXIDE 26 mmol/L (21-31); CHLORIDE 101 mmol/L (97-110); CREATININE 0.63 mg/dl (0.44-1.00); Estimated GFR > 60 mL/min (>60); GLUCOSE 106 mg/dl (70-220); POTASSIUM 4.7 mmol/L (3.5-5.1); SODIUM 137 mmol/L (135-144); TOTAL PROTEIN 6.5 g/dl (6.1-8.1)
[2018-09-15 21:29] LABS: PARTIAL THROMBOPLASTIN TIME 22.7 Sec (23.0-35.0)
[2018-09-15 21:55] LABS: INR 0.98; PROTIME 13.1 Sec (11.9-14.9)
[2018-09-15 21:58] LABS: HEPATITIS B SURFACE ANTIGEN NEGATIVE (NEGATIVE)
[2018-09-15] MEDS: SERTRALINE 50 MG TAB PO (22:30)
[2018-09-15] MEDS: FAMOTIDINE 20 MG TAB PO (22:31)
[2018-09-15] MEDS: LABETALOL 100 MG TAB PO (22:31)
[2018-09-15 22:48] LABS: ADD UMIC NO; UR ASCORBIC ACID NEGATIVE (NEGATIVE); UR BILIRUBIN (Dip) NEGATIVE (NEGATIVE); UR BLOOD (Dip) NEGATIVE (NEGATIVE); UR CLARITY CLEAR (CLEAR); UR COLOR YELLOW (YELLOW); UR GLUCOSE (Dip) NEGATIVE (NEGATIVE); UR KETONES (Dip) NEGATIVE (NEGATIVE); UR LEUKOCYTE ESTERASE (Dip) NEGATIVE Leu/ul (NEGATIVE); UR NITRITE (Dip) NEGATIVE (NEGATIVE); UR SPECIFIC GRAVITY (Dip) 1.011 (1.003-1.030); UR TOTAL PROTEIN (Dip) NEGATIVE (NEGATIVE); UR UROBILINOGEN (Dip) NEGATIVE (NEGATIVE)
[2018-09-16] MEDS: PRENATAL VITAMIN PO (09:04)
[2018-09-16] MEDS: FAMOTIDINE 20 MG TAB PO ×2 (09:04→21:35)
[2018-09-16] MEDS: LABETALOL 100 MG TAB PO (09:55)
[2018-09-16] MEDS ORDERED: METHYLERGONOVINE 0.2 MG INJ IM (10:30)
[2018-09-16] MEDS ORDERED: MISOPROSTOL 200 MCG TAB PR (10:30)
[2018-09-16] MEDS ORDERED: IBUPROFEN 600 MG TAB PO (10:30)
[2018-09-16] MEDS ORDERED: OXYTOCIN 30 UNITS/LR 500 ML IV ×3 (10:30)
[2018-09-16] MEDS ORDERED: AMPICILLIN 2 GM/NS (PMX) 100 ML IV (10:30)
[2018-09-16] MEDS ORDERED: CARBOPROST 250 MCG INJ IM (10:30)
[2018-09-16] MEDS ORDERED: BUTORPHANOL 2 MG INJ IV (10:30)
[2018-09-16] MEDS ORDERED: BUTORPHANOL 1 MG INJ IV (10:30)
[2018-09-16 11:42] LABS: HEPATITIS B SURFACE ANTIGEN NEGATIVE (NEGATIVE)
[2018-09-16] MEDS: LACTATED RINGER'S 1,000 ML IV ×2 (12:20→19:56)
[2018-09-16] MEDS: MISOPROSTOL 50 MCG CAPSULE PO ×3 (12:34→21:35)
[2018-09-16] MEDS ORDERED: AMPICILLIN 1 GM/NS (PMX) 50 ML IV (14:30)
[2018-09-16] MEDS: SERTRALINE 50 MG TAB PO (21:36)
[2018-09-16 21:41] LABS: RAPID PLASMA REAGIN NONREACTIVE (NR)
[2018-09-16 23:24] LABS: COLLECTION PERIOD 24 hrs
[2018-09-16 23:41] LABS: CREATININE,URINE RANDOM 42.82 mg/dl (20-320)
[2018-09-16 23:53] LABS: COLLECTION PERIOD 24 hrs; VOLUME 3650 ml/24hrs; VOLUME 3650 mls
[2018-09-16 23:58] LABS: CREATININE CLEARANCE 172.3 mls/min (84.0-162.0); SCRET 0.63 mg/dl (0.44-1.00)
[2018-09-17] MEDS: MISOPROSTOL 50 MCG CAPSULE PO (02:35)
[2018-09-17] MEDS: LACTATED RINGER'S 1,000 ML IV ×4 (04:09→23:24)
[2018-09-17] MEDS ORDERED: FENTAnyl 2MCG/ML-ROPIV 0.2% 100 ML (04:56)
[2018-09-17] MEDS ORDERED: ONDANSETRON 4 MG INJ IV ×3 (05:00→20:00)
[2018-09-17] MEDS ORDERED: NALOXONE (0.4 MG/ML) INJ IV ×2 (05:00→20:00)
[2018-09-17] MEDS ORDERED: morphine SULFATE/PF (10 MG/10 ML) INJ (07:00)
[2018-09-17] MEDS: LABETALOL 100 MG TAB PO ×3 (09:29→22:09)
[2018-09-17] MEDS: OXYTOCIN 30 UNITS/LR 500 ML IV ×3 (10:43→23:58)
[2018-09-17] MEDS ORDERED: LACTATED RINGER'S 500 ML IV (13:39)
[2018-09-17] MEDS: FENTAnyl 2MCG/ML-ROPIV 0.2% 100 ML BAG EPI (13:51)
[2018-09-17] MEDS ORDERED: CARBOPROST 250 MCG INJ IM ×2 (14:00→14:30)
[2018-09-17] MEDS ORDERED: METHYLERGONOVINE 0.2 MG INJ IM ×2 (14:00→14:30)
[2018-09-17] MEDS ORDERED: MISOPROSTOL 200 MCG TAB PR ×2 (14:00→14:30)
[2018-09-17] MEDS ORDERED: CEFAZOLIN 2 GM/50 ML (PMX) 50 ML IVPB (14:00)
[2018-09-17] MEDS ORDERED: OXYTOCIN 30 UNITS/LR 500 ML IV ×2 (14:00→14:30)
[2018-09-17] MEDS ORDERED: METHYLERGONOVINE 0.2 MG TAB PO (14:30)
[2018-09-17] MEDS ORDERED: hydrOXYzine HCL 25 MG TAB PO (14:30)
[2018-09-17] MEDS ORDERED: NA PHOSPHATE/BIPHOS 133 ML ENEMA PR (14:30)
[2018-09-17] MEDS ORDERED: CHLOROPROCAINE 3% (MPF) 20 ML INJ (15:27)
[2018-09-17] MEDS ORDERED: ACETAMINOPHEN 500 MG TAB PO (16:00)
[2018-09-17] MEDS ORDERED: FENTAnyl 50 MCG/ML VIAL ×3 (16:05→16:23)
[2018-09-17] MEDS: KETOROLAC 30 MG INJ IV ×2 (17:08→23:54)
[2018-09-17] MEDS ORDERED: FENTAnyl 50 MCG/ML VIAL IV ×2 (20:00)
[2018-09-17] MEDS ORDERED: HYDROmorphONE 1 MG/5 ML IV SYRINGE IV ×3 (20:00)
[2018-09-17] MEDS ORDERED: KETOROLAC 30 MG INJ IV ×2 (20:00)
[2018-09-17] MEDS ORDERED: METOCLOPRAMIDE 10 MG INJ IV (20:00)
[2018-09-17] MEDS ORDERED: DIPHENHYDRAMINE 50 MG INJ IV (20:00)
[2018-09-17] MEDS ORDERED: IBUPROFEN 800 MG TAB PO (22:00)
[2018-09-17] MEDS: HYDROmorphONE 0.5 MG/0.5 ML SYG IV (22:09)
[2018-09-17] MEDS: SENNA/DOCUSATE NA (8.6MG/50MG) TAB PO (22:10)
[2018-09-17] MEDS: CEFAZOLIN 2 GM/50 ML (PMX) 50 ML IVPB ×2 (23:24→23:54)
[2018-09-18] MEDS: KETOROLAC 30 MG INJ IV ×4 (06:20→22:00)
[2018-09-18 06:44] LABS: ADD MAN DIFF? NO
[2018-09-18 06:48] LABS: WHITE BLOOD COUNT 13.3 10^3/ul (4.8-10.8)
[2018-09-18 06:48] LABS: BASOPHILS % 0.2 % (0.0-2.0); EOSINOPHILS % 0.2 % (0.0-7.0); HEMATOCRIT 33.6 % (37.0-47.0); HEMOGLOBIN 11.5 g/dl (12.0-16.0); LYMPHOCYTES # 1.6 10^3/ul (0.8-2.9); LYMPHOCYTES % 11.7 % (15.0-51.0); MEAN CORPUSCULAR HEMOGLOBIN 33.6 pg (29.0-33.0); MEAN CORPUSCULAR HGB CONC 34.2 g/dl (32.0-37.0); MEAN CORPUSCULAR VOLUME 98.2 fl (82.0-101.0); MEAN PLATELET VOLUME 10.6 fl (7.4-10.4); MONOCYTES % 7.6 % (0.0-11.0); NEUTROPHIL # 10.6 10^3/ul (1.6-7.5); NEUTROPHILS % 79.6 % (39.0-77.0); PLATELET COUNT 212 10^3/UL (140-415); RED BLOOD COUNT 3.42 10^6/ul (4.20-5.40); RED CELL DISTRIBUTION WIDTH 13.4 % (11.5-14.5)
[2018-09-18] MEDS: CEFAZOLIN 2 GM/50 ML (PMX) 50 ML IVPB ×2 (08:37→15:18)
[2018-09-18] MEDS: LABETALOL 100 MG TAB PO ×3 (08:37→21:35)
[2018-09-18] MEDS: SENNA/DOCUSATE NA (8.6MG/50MG) TAB PO ×2 (08:38→21:35)
[2018-09-18] MEDS: HYDROmorphONE 0.5 MG/0.5 ML SYG IV ×2 (08:47→15:59)
[2018-09-18] MEDS ORDERED: SERTRALINE 50 MG TAB PO ×2 (09:00)
[2018-09-18] MEDS: LACTATED RINGER'S 1,000 ML IV ×2 (13:24→21:20)
[2018-09-18] MEDS ORDERED: hydrOXYzine HCL 25 MG TAB PO (13:30)
[2018-09-18] MEDS ORDERED: oxyCODONE (CR) 15 MG TAB [oxyCONTIN] PO (15:00)
[2018-09-18] MEDS ORDERED: oxyCODONE 15 MG TAB PO (15:00)
[2018-09-18] MEDS: LANOLIN HPA 1 PKT TOP (15:18)
[2018-09-18] MEDS: BISACODYL (EC) 5 MG TAB PO (15:59)
[2018-09-18] MEDS: ACETAMINOPHEN 500 MG TAB PO (17:07)
[2018-09-18] MEDS: IBUPROFEN 800 MG TAB PO ×2 (17:07→22:15)
[2018-09-18] MEDS: SERTRALINE 50 MG TAB PO (21:44)
[2018-09-19] MEDS ORDERED: IBUPROFEN 800 MG TAB PO (04:00)
[2018-09-19] MEDS: LACTATED RINGER'S 1,000 ML IV (05:40)
[2018-09-19] MEDS: SENNA/DOCUSATE NA (8.6MG/50MG) TAB PO ×2 (09:24→21:23)
[2018-09-19] MEDS: IBUPROFEN 800 MG TAB PO ×3 (09:25→21:27)
[2018-09-19] MEDS: LABETALOL 100 MG TAB PO ×2 (09:26→21:23)
[2018-09-19] MEDS: BISACODYL (EC) 5 MG TAB PO (10:12)
[2018-09-19] MEDS: traMADol 50 MG TAB PO (10:58)
[2018-09-19] MEDS: SERTRALINE 50 MG TAB PO (21:24)
[2018-09-20] MEDS: IBUPROFEN 800 MG TAB PO ×2 (06:00→12:56)
[2018-09-20 06:38] LABS: ADD MAN DIFF? NO
[2018-09-20 06:40] LABS: BASOPHILS % 0.3 % (0.0-2.0); EOSINOPHILS # 0.1 10^3/ul (0.0-0.5); HEMATOCRIT 35.8 % (37.0-47.0); HEMOGLOBIN 12.1 g/dl (12.0-16.0); LYMPHOCYTES % 19.2 % (15.0-51.0); MEAN CORPUSCULAR HEMOGLOBIN 33.6 pg (29.0-33.0); MEAN CORPUSCULAR HGB CONC 33.8 g/dl (32.0-37.0); MEAN CORPUSCULAR VOLUME 99.4 fl (82.0-101.0); MEAN PLATELET VOLUME 10.1 fl (7.4-10.4); MONOCYTE # 0.8 10^3/ul (0.3-0.9); MONOCYTES % 7.7 % (0.0-11.0); NEUTROPHIL # 7.5 10^3/ul (1.6-7.5); NEUTROPHILS % 71.3 % (39.0-77.0); PLATELET COUNT 242 10^3/UL (140-415); RED CELL DISTRIBUTION WIDTH 13.5 % (11.5-14.5)
[2018-09-20 06:40] LABS: WHITE BLOOD COUNT 10.5 10^3/ul (4.8-10.8)
[2018-09-20] MEDS: DIPHTH/TET/ACEL PERTUSS (ADULT) 0.5 ML VIAL IM* (09:39)
[2018-09-20] MEDS: MEASLES,MUMPS,RUBELLA VACCINE INJ SC* (09:40)
[2018-09-20] MEDS: SENNA/DOCUSATE NA (8.6MG/50MG) TAB PO (09:40)
[2018-09-20] MEDS: LABETALOL 100 MG TAB PO (09:42)
== END 2018-09-20 15:15 | disposition home or self-care (01) | DRG 788 ==
LOC: L-D 09-17 15:15 → PP1 09-17 20:00
PROVIDERS: Obstetrics & Gynecology
PROC: 10D00Z1 Extraction of Products of Conception, Low, Open Approach (ICD-10-PCS; principal; 2018-09-17 16:30)
DX: O14.04 Mild to moderate pre-eclampsia, complicating childbirth (principal); O10.02 Pre-existing essential hypertension complicating childbirth; O76 Abnormality in fetal heart rate and rhythm complicating labor and delivery; O34.13 Maternal care for benign tumor of corpus uteri, third trimester; D25.9 Leiomyoma of uterus, unspecified; Z37.0 Single live birth; Z3A.37 37 weeks gestation of pregnancy
CPT/HCPCS: 62319; 76815; 80053; 81003; 82575; 84156; 84560; 85025; 85384; 85610; 85730; 86592; 86850; 86900; 86901; 87340; J2400